=== PATIENT | female | born 1945 | race Caucasian/White ===

== ENCOUNTER → 2024-04-19 06:18 | Day surgery (SDC) | payer MEDICARE, SELFPAY | LOC: GI 06:18 | PROVIDERS: ATTENDING PHYSICIAN Internal Medicine Gastroenterology; FAMILY PHYSICIAN Family Medicine | DX: K22.2 Esophageal obstruction (principal); R13.10 Dysphagia, unspecified; K20.80 Other esophagitis without bleeding | CPT/HCPCS: 43249; 88305; 88312 ==